=== PATIENT | male | born 1965 | race Caucasian/White ===

== ENCOUNTER 2017-05-29 07:49 | Day surgery (SDC) | payer OTHER ==
[~2017-05-29] VITALS: Ht 185.4 cm; Wt 78.5 kg
[~2017-05-29 07:49] MED LIST: QUET100 PO; TAMS.4ER PO
[2017-05-29] MEDS ORDERED: TAMS.4ER (08:44)
[2017-05-29] MEDS ORDERED: IBUP400 (08:45)
== END 2017-05-29 10:09 | disposition home or self-care (01) ==
LOC: ORSCSDS 07:49
PROVIDERS: Surgery
PROC: 0DBN8ZX Excision of Sigmoid Colon, Via Natural or Artificial Opening Endoscopic, Diagnostic (ICD-10-PCS; principal; 2017-05-29 09:15)
PROC: 0DBL8ZX Excision of Transverse Colon, Via Natural or Artificial Opening Endoscopic, Diagnostic (ICD-10-PCS; principal; 2017-05-29 09:15)
DX: Z12.11 Encounter for screening for malignant neoplasm of colon (principal); D12.3 Benign neoplasm of transverse colon; D12.5 Benign neoplasm of sigmoid colon; Z83.71 Family history of colonic polyps; Z87.891 Personal history of nicotine dependence; Z79.899 Other long term (current) drug therapy
CPT/HCPCS: 88305; J7120

== ENCOUNTER → 2020-03-02 | Outpatient (CLI) | payer OTHER ==
[~2020-03-02] MED LIST changes: +IBUP400; +TAMS.4ER
== END | disposition home or self-care (01) ==
LOC: LAB SHORT 15:37
DX: Z20.828 Contact with and (suspected) exposure to other viral communicable diseases (principal)
CPT/HCPCS: U0003

== ENCOUNTER → 2020-06-29 | Outpatient (CLI) | payer OTHER | END | disposition home or self-care (01) | LOC: LAB 18:55 → LAB SHORT 18:55 | DX: J02.9 Acute pharyngitis, unspecified (principal) | CPT/HCPCS: 87081 ==

== ENCOUNTER 2021-11-03 16:34 | Inpatient (IN) | payer OTHER ==
[~2021-11-03] VITALS: Ht 177.8 cm; Wt 79.4 kg
[2021-11-03 17:08] LABS: BASOPHILS ABSOLUTE AUTO 0.04 K/mm3 (0.00-0.23); BASOPHILS PERCENT AUTO 0 % (0-2); EOSINOPHILS ABSOLUTE AUTO 0.02 K/mm3 (0.00-0.68); EOSINOPHILS PERCENT AUTO 0 % (0-6); Hematocrit 45.2 % (37.0-53.0); IMMATURE GRAN ABSOLUTE AUTO 0.08 K/mm3 (0.00-0.10); IMMATURE GRAN PERCENT AUTO 1 % (0-1); LYMPHOCYTES ABSOLUTE AUTO 2.44 K/mm3 (0.84-5.20); LYMPHOCYTES PERCENT AUTO 23 % (21-46); MONOCYTES ABSOLUTE AUTO 0.63 K/mm3 (0.16-1.47); MONOCYTES PERCENT AUTO 6 % (4-13); Mean Corpuscular HGB 30.2 pg (26.0-34.0); Mean Corpuscular HGB Conc 33.2 g/dL (31.5-36.5); Mean Corpuscular Volume 91 fL (80-100); Mean Platelet Volume 9.3 fL (9.1-12.4); NEUTROPHILS ABSOLUTE AUTO 7.46 K/mm3 (1.96-9.15); NEUTROPHILS PERCENT AUTO 70 % (41-73); Platelet Count 218 K/mm3 (150-400); RDW Coefficient Variation 12.3 % (11.7-14.2); RDW Standard Deviation 41.1 fL (35.1-46.3); Red Blood Cell Count 4.96 M/mm3 (4.30-5.90); White Blood Cell Count 10.67 K/mm3 (4.00-11.30)
[2021-11-03 17:22] LABS: International Normalized Ratio 1.04; Prothrombin Time Results 10.9 Sec (9.7-11.5)
[2021-11-03 17:26] LABS: Alanine Aminotransfer (ALT/SGP 33 U/L (12-78); Albumin, Blood 4.2 g/dL (3.4-5.0); Albumin/Globulin Ratio 1.3 (0.8-1.8); Alk Phos 54 U/L (50-136); Anion Gap 7 mmol/L (6-16); Aspartate Aminotrans (AST/SGOT 27 U/L (12-37); Bilirubin, Total 0.6 mg/dL (0.1-1.0); Blood Urea Nitrogen 20 mg/dL (8-24); CO2, Blood 28 mmol/L (21-32); Calcium, Blood 9.5 mg/dL (8.5-10.1); Chloride, Blood 109 mmol/L (98-108); Ethanol (Alcohol), Blood, Med <3 mg/dL; Globulin, Blood 3.3 g/dL (2.2-4.0); Glomerular Filtration Rate 89 (60-); Glucose, Blood 126 mg/dL (70-99); Potassium, Blood 4.1 mmol/L (3.5-5.5); Sodium, Blood 144 mmol/L (136-145); Total Protein, Blood 7.5 g/dL (6.4-8.2)
--- NOTE | 2021-11-04 05:07 | NUR ---
SHIFT SUMMARY NEW ER ADMIT THIS SHIFT WITH L PNEUMOTHORAX AND CHEST TUBE. CHEST TUBE TO WALL SUCTION PER ORDERS WITH SS OUTPUT. MILD CREPITUS NOTED AROUND INSERTION SITE. PT ON RA AND DENIES SOB. 1MG IV DILAUDID + TORADOL FOR PAIN MANAGEMENT. PT EXTREMELY PAINFUL WITH MOVEMENT/COUGHING/DEEP BREATHING. IV SL. MOLLY REG DIET. USING URINAL TO VOID. CALL LIGHT WITHIN REACH.
--- NOTE | 2021-11-05 04:02 | NUR ---
SHIFT SUMMARY NO ACUTE CHANGES. CHEST TUBE TO WATER SEAL AND REMAINS INTACT. SS DRAINAGE NOTED IN COLLECTION CHAMBER. PT DENIES SOB, BUT CONT TO REPORT SHALLOW BREATHING R/T PAIN. 2 ROXICODONE + TYLENOL FOR PAIN MANAGEMENT. PT USING URINAL TO VOID. VSS. USES CALL LIGHT APPROPRIATELY.
--- NOTE | 2021-11-05 14:49 | NUR ---
PTS'S CHEST TUBE CLAMPED BY DR BISWAS AT THIS AM FOLLOWING TRAL TO WATER SEAL WITH NO INCREASED SOB OR CHEST PAIN, VSS. CXR DONE-PER DR BISWAS XRAY IMPROVED AND ABLE TO REMOVE CHEST TUBE. DR BISWAS AT BEDSIDE AT APROX 1445. CHEST TUBE REMOVED W/NO COMPLICATIONS. WILL EDUCATE ON USE OF INCENTIVE SPIROMETER. PT RESTING IN BED AT THIS TIME. WILL START BACLOFEN FOR MUSCLE SPASMS.
--- NOTE | 2021-11-05 21:24 | NUR ---
PT ONLY ALLOWING MINIMAL ASSESSMENT. LUNGS CLEAR, DIM ON LEFT SIDE. SATS >90% ON RA, PT DENIES SOB. I/S USE REINFORCED, PT REPORTS HE HAS BEEN USING REGULARLY. CHEST TUBE DRESSING W/SS DRNG, NO CREPITUS NOTED. PT ONLY ALLOWED MINIMAL ASSESSMENT, DID NOT ALLOW ASSESSMENT OF BRUISES/ABRASIONS. PT REP AMB INDEP IN ROOM, DENIES DIZZINESS WHEN UP.
--- NOTE | 2021-11-05 21:28 | NUR ---
PT ONLY ALLOWING MINIMAL ASSESSMENT, PATIENT EDUCATED OF IMPORTANCE OF IT. ALSO EDUCATED ON I/S AND AMBULATION FOR LUNG HEALTH. NO DISTRESS NOTED.
--- NOTE | 2021-11-06 04:27 | NUR ---
PT POD1 FROM L CHEST TUBE REMOVAL. VSS, MEDICATED FOR PAIN ONCE PER PT REQUEST. PT SLEPT WELL T/O THE NIGHT. PT STATES HE HAS BEEN GETTING UP TO USE THE RESTROOM, THIS HAS NOT BEEN VISUALIZED BY STAFF. PT APPEARS TO HAVE ONLY USED THE URINAL. PT ONLY ALLOWING ONLY MINIMAL NURSING ASSESSMENT AND ANSWERING MINIMAL NURSING QUESTIONS STATING HE "ONLY WANTS TO BE LEFT ALONE TO SLEEP". NO DISTRESS NOTED, CALL LIGHT IN REACH. PT EAGER TO D/C HOME TODAY.
[2021-11-06] MEDS ORDERED: Acetaminophen650 M1 PO (09:53)
[2021-11-06] MEDS ORDERED: BACLOFEN5 M1 PO (09:57)
[2021-11-06] MEDS ORDERED: IBUP400 PO (09:58)
[2021-11-06] MEDS ORDERED: OXAYDO5 M1 PO (10:00)
[2021-11-06] MEDS ORDERED: MIRALAX17 GM PO (10:01)
--- NOTE | 2021-11-06 10:36 | NUR ---
DC INSTRUCTIONS GIVEN, VERBALIZED UNDERSTANDING, IV DC'D, CATH INTACT, PT WAITING FOR RIDE HOME.
--- NOTE | 2021-11-06 13:50 | NUR ---
DC'D HOME THIS AFTERNOON, PT TOOK A A [facility] HOME PER PT REQUEST.
== END 2021-11-06 13:00 | disposition home or self-care (01) | DRG 200 ==
LOC: ER 16:56 → SURS 18:32 → ER 20:00 → SURS 11-06 13:00
PROVIDERS: Student in an Organized Health Care Education/Training Program; ADMIT Surgery
PROC: 0W9B00Z Drainage of Left Pleural Cavity with Drainage Device, Open Approach (ICD-10-PCS; principal; 2021-11-03)
PROC: 3E0234Z Introduction of Serum, Toxoid and Vaccine into Muscle, Percutaneous Approach (ICD-10-PCS; 2021-11-03)
DX: S27.0XXA Traumatic pneumothorax, initial encounter (principal); S22.32XA Fracture of one rib, left side, initial encounter for closed fracture; G47.00 Insomnia, unspecified; Z23 Encounter for immunization; S30.810A Abrasion of lower back and pelvis, initial encounter; S20.212A Contusion of left front wall of thorax, initial encounter; Z98.890 Other specified postprocedural states; Z87.891 Personal history of nicotine dependence; Z79.899 Other long term (current) drug therapy; V12.4XXA Pedal cycle driver injured in collision with two- or three-wheeled motor vehicle in traffic accident, initial encounter; Y92.410 Unspecified street and highway as the place of occurrence of the external cause
CPT/HCPCS: 32551; 70450; 71045; 71260; 72125; 72170; 74177; 80053; 83605; 83690; 85025; 85610; 90471; 90714; 96374-59; 96375-59; 96376-59; 97162; 97165; 97530; 99291-25; A9270; G0390; G0480; J0690; J1170; J1885; J3010; J7120; Q9967